=== PATIENT | female | born 1990 | race Caucasian/White ===

== ENCOUNTER 2019-03-25 13:48 | Observation (INO) | payer MEDICAID | END 2019-03-25 15:25 | disposition home or self-care (01) | DRG 566 | LOC: LDRP 13:48 | PROVIDERS: ADMIT Obstetrics & Gynecology; ATTEND Obstetrics & Gynecology | DX: O36.5930 Maternal care for other known or suspected poor fetal growth, third trimester, not applicable or unspecified (principal); Z3A.38 38 weeks gestation of pregnancy | CPT/HCPCS: 59025; 76818; 81002; G0378 ==

== ENCOUNTER 2019-03-26 20:18 | Observation (INO) | payer MEDICAID | END 2019-03-26 21:45 | disposition home or self-care (01) | DRG 566 | LOC: LDRP 20:18 | PROVIDERS: ADMIT Specialist; ATTEND Specialist | DX: O26.853 Spotting complicating pregnancy, third trimester (principal); Z3A.38 38 weeks gestation of pregnancy | CPT/HCPCS: 59025; 81002; G0378 ==

== ENCOUNTER 2019-03-30 14:08 | Observation (INO) | payer MEDICAID ==
[2019-03-30 14:59] LABS: Urine Bacteria FEW /hpf (None Seen); Urine Blood 2+ /uL (Negative); Urine Mucus FEW (None Seen); Urine Specific Gravity 1.013 (1.001-1.035); Urine WBC 8 /hpf (0 - 5)
== END 2019-03-30 15:24 | disposition home or self-care (01) | DRG 566 ==
LOC: LDRP 14:08
PROVIDERS: ADMIT Specialist; ATTEND Specialist
DX: O36.5931 Maternal care for other known or suspected poor fetal growth, third trimester, fetus 1 (principal); Z3A.38 38 weeks gestation of pregnancy
CPT/HCPCS: 59025; 76818; 81001; 81002; G0378

== ENCOUNTER 2019-04-03 09:40 | Inpatient (IN) | payer MEDICAID ==
[~2019-04-03] VITALS: Ht 30.5 cm; Wt 0.5 kg
[2019-04-03] MEDS ORDERED: LACT. RINGERS/OXYTOCIN 20UNITS 1,000 ML IV SCH (10:01)
[2019-04-03] MEDS ORDERED: FERR-7 PO (10:14)
[2019-04-03] MEDS ORDERED: PREN-96 PO (10:14)
[2019-04-03] MEDS ORDERED: NALBUPHINE HCL 10 MG/1ml INJECTION IV PRN (10:15)
[2019-04-03] MEDS ORDERED: PHISODERM TOP SOLN 240ML BTL TOP PRN (10:15)
[2019-04-03] MEDS ORDERED: LIDOCAINE 2%HCL (LOCAL ANESTH.) INJ 20ML MDV ID ONE (10:15)
[2019-04-03] MEDS ORDERED: DERMOPLAST 60ML BOTTLE TOP PRN (10:15)
[2019-04-03] MEDS ORDERED: WITCH HAZEL-GLYCERIN PAD TOP PRN (10:15)
[2019-04-03] MEDS ORDERED: PENICILLIN G POT 5MIL/D5 50ML 50 ML IV ONE (10:15)
[2019-04-03 10:28] LABS: Basophils # (auto) 0.1 uL; Basophils % (auto) 0.8 % (0.0-2.0); Eosinophils # (auto) 0 uL; Eosinophils % (auto) 0.4 % (0.0-7.0); Hematocrit 40.6 % (36.0-46.0); Hemoglobin 13.5 g/dL (12.2-16.2); Lymphocytes # (auto) 1.8 uL; Lymphocytes % (auto) 22.3 % (10.0-50.0); Mean Corpuscular Hemoglobin 30.8 pg (28.0-32.0); Mean Corpuscular Hgb Conc. 33.2 g/dL (32.0-36.0); Mean Corpuscular Volume 92.8 fL (80.0-100.0); Monocytes # (auto) 0.8 uL; Monocytes % (auto) 9.6 % (0.0-12.0); Neutrophils # (auto) 5.5 uL; Neutrophils % (auto) 66.9 % (37.0-80.0); Nucleated Red Blood Cells % 0.1 %; Platelet Count (auto) 246 10^3/uL (140-450); Red Blood Cells 4.38 10^6/uL (4.0-5.20); White Blood Cell 8.2 10^3/uL (4.4-10.8)
[2019-04-03 10:29] LABS: Red Cell Distribution Width 24.1 % (11.8-14.3)
[2019-04-03 10:31] LABS: Urine Bacteria NONE SEEN /hpf (None Seen); Urine Blood Negative /uL (Negative); Urine Mucus FEW (None Seen); Urine Specific Gravity 1.017 (1.001-1.035); Urine WBC 2 /hpf (0 - 5)
[2019-04-03 10:42] LABS: INR 0.91 (0.9-1.15); Partial Thromboplastin Time 26.3 sec (23.64-32.05)
[2019-04-03 10:51] LABS: Calcium 9.2 mg/dL (8.5-10.1); Potassium 4.1 mmol/L (3.5-5.1)
[2019-04-03 10:54] LABS: BUN/Creatinine Ratio 10.8; Bilirubin, Total 0.5 mg/dL (0.2-1.0); Total Protein 6.7 g/dL (6.4-8.2)
[2019-04-03] MEDS: LACTATED RINGER'S 1,000 ML IV SCH ×2 (12:00→16:19)
[2019-04-03] MEDS ORDERED: BUTORPHANOL TARTRATE 2 MG/1 ML VIAL IV ONE (15:30)
[2019-04-03] MEDS: PENICILLIN G POTASSIUM 2,500,000 UNITS in D5W 5% 50 ML IV SCH ×2 (15:49→20:49)
[2019-04-03] MEDS ORDERED: LACTATED RINGER'S 1,000 ML IV ONE (19:40)
[2019-04-03] MEDS ORDERED: NALOXONE HCL 0.4 MG/ML VIAL IV ONE ×2 (19:45→20:30)
[2019-04-03] MEDS ORDERED: ePHEDrine SULFATE 50 MG/ML AMP IV ONE ×2 (19:45→20:30)
[2019-04-03] MEDS ORDERED: fentaNYL 200mCg/100ml W ROPIVA 100 ML EPI SCH ×2 (19:45→20:30)
[2019-04-03] MEDS ORDERED: TERBUTALINE SULFATE 1 MG/ML 1ML VIAL SC ONE (21:54)
[2019-04-03] MEDS ORDERED: MORPHINE SULF(PF) 0.5MG/ML 10ML VIAL ONE (22:27)
[2019-04-03] MEDS ORDERED: ePHEDrine SULFATE 50 MG/ML AMP ONE (22:27)
[2019-04-03] MEDS ORDERED: PHENYLEPHRINE HCL 10 MG/ML VL ONE (22:27)
[2019-04-03] MEDS ORDERED: fentaNYL CITRATE 100 MCG/2 ML VL ONE (22:29)
[2019-04-03] MEDS ORDERED: fentaNYL CITRATE 0 ML ONE (22:29)
[2019-04-03 23:15] LABS: Alcohol, Urine < 3.0 mg/dL (0-5); Amphetamine Screen, Urine NEGATIVE (NEGATIVE); Barbiturate Scree,Urine NEGATIVE (NEGATIVE); Benzodiazephine Screen, Urine NEGATIVE (NEGATIVE); Cannabinoid Screen, Urine NEGATIVE (NEGATIVE); Cocaine Screen, Urine NEGATIVE (NEGATIVE); Opiate Scree,Urine NEGATIVE (NEGATIVE); Phencyclidine Screen, Urine NEGATIVE (NEGATIVE)
[2019-04-03] MEDS ORDERED: MIDAZOLAM HCL 1MG/1ML-2 ML VIAL ONE (23:19)
[2019-04-03] MEDS ORDERED: SODIUM CHLORIDE LOCK 10 ML ONE (23:35)
[2019-04-03] MEDS ORDERED: HYDROmorphone HCL 2 MG/ML VL IV PRN (23:45)
[2019-04-03] MEDS ORDERED: KETOROLAC TROMETH 15 mg/ml 1ML VL IV PRN (23:45)
[2019-04-03] MEDS ORDERED: diphenhdrAMINE HCL 50 MG/1 ML VL IV PRN (23:45)
[2019-04-03] MEDS ORDERED: ONDANSETRON HCL 4 MG/2 ML VIAL IV PRN ×2 (23:45)
[2019-04-03] MEDS ORDERED: NALOXONE HCL 0.4 MG/ML VIAL IV PRN ×2 (23:45)
[2019-04-03] MEDS ORDERED: LACTATED RINGER'S 1,000 ML IV SCH (23:58)
[2019-04-04] VITALS (17 sets, daily range): BP systolic 87–101; BP diastolic 53–72
[2019-04-04] MEDS ORDERED: ceFAZolin 1GM/50ML 50 ML IV SCH
[2019-04-04] MEDS ORDERED: ACETAMINOPHEN IV 1000 MG/100ML (10MG/ML) IV PRN
[2019-04-04] MEDS ORDERED: TERBUTALINE SULFATE 1 MG/ML 1ML VIAL SC ONE
[2019-04-04] MEDS ORDERED: HYDROmorphone HCL 2 MG/ML VL IV PRN
[2019-04-04] MEDS ORDERED: ONDANSETRON HCL 4 MG/2 ML VIAL IV PRN
[2019-04-04 00:55] LABS: Basophils # (auto) 0.1 uL; Basophils % (auto) 0.5 % (0.0-2.0); Eosinophils # (auto) 0 uL; Hematocrit 31.1 % (36.0-46.0); Hemoglobin 10.2 g/dL (12.2-16.2); Lymphocytes # (auto) 1.4 uL; Lymphocytes % (auto) 9.5 % (10.0-50.0); Mean Corpuscular Hgb Conc. 32.8 g/dL (32.0-36.0); Mean Corpuscular Volume 94.5 fL (80.0-100.0); Monocytes # (auto) 0.9 uL; Monocytes % (auto) 6.3 % (0.0-12.0); Neutrophils # (auto) 12.2 uL; Neutrophils % (auto) 83.7 % (37.0-80.0); Platelet Count (auto) 216 10^3/uL (140-450); Red Blood Cells 3.29 10^6/uL (4.0-5.20); White Blood Cell 14.6 10^3/uL (4.4-10.8)
[2019-04-04 01:01] LABS: Red Cell Distribution Width 23.8 % (11.8-14.3)
--- NOTE | 2019-04-04 01:17 | NUR ---
Bottle-feeding Education: Patient encouraged to breastfeed. Benefits of and the risk of providing formula to was discussed. Patient verbalized understanding of the benefits and is aware of risk and insists on bottle-feeding. Formula provided and instruction on formula preperation from the New Beginning booklet reviewed with patient.
--- NOTE | 2019-04-04 01:17 | NUR ---
Teaching: Reviewed information in New Beginnings booklet with patient. Discussed benefits of and risks associated with not . Discussed different positions, proper latch, feeding cues, and baby-led . Provided information of medication side effects related to . All questions and concerns addressed at this time. Patient verbalized understanding of information.
--- NOTE | 2019-04-04 01:17 | NUR ---
Post Op for LDRP: Received patient from PACU via bed to room 8B. Patient A/A/Ox4, IV fluids placed on pump and infusing per order, incisional site dressing clean/dry/intact and Rivera Catheter to gravity draining clear yellow urine. Incentive Spirometer at bedside and instruction on proper use with return demonstration done by patient.
[2019-04-04] MEDS: LACTATED RINGER'S 1,000 ML IV SCH (02:46)
[2019-04-04 05:37] LABS: Basophils # (auto) 0 uL; Basophils % (auto) 0.4 % (0.0-2.0); Eosinophils # (auto) 0 uL; Eosinophils % (auto) 0.1 % (0.0-7.0); Hematocrit 28.4 % (36.0-46.0); Hemoglobin 9.6 g/dL (12.2-16.2); Lymphocytes # (auto) 1.6 uL; Lymphocytes % (auto) 17.4 % (10.0-50.0); Mean Corpuscular Hemoglobin 31.7 pg (28.0-32.0); Mean Corpuscular Volume 93.2 fL (80.0-100.0); Monocytes # (auto) 0.7 uL; Monocytes % (auto) 7.4 % (0.0-12.0); Neutrophils # (auto) 6.7 uL; Neutrophils % (auto) 74.7 % (37.0-80.0); Platelet Count (auto) 167 10^3/uL (140-450); Red Blood Cells 3.05 10^6/uL (4.0-5.20)
[2019-04-04 06:16] LABS: Red Cell Distribution Width 22.9 % (11.8-14.3)
--- NOTE | 2019-04-04 06:38 | NUR ---
PT DID NOT HAVE AN ABDOMINAL BINDER IN PLACE UPON INITIAL ASSESSMENT, ABDOMINAL BINDER PLACED AND PT EDUCATED ON THE IMPORTANCE. PT HAS SCD'S COMPRESSING BILATERAL LOWER EXTREMITIES. PTS GIVEN HER INCENTIVE SPIROMETER, PT EDUCATED ON THE USE OF USING 10 TIMES EVERY HOUR. PT SHOWED PROPER USE AND PT RETURNED DEMONSTRATION. PT IV SITE IS CLEAN, DRY, AND INTACT, 0.9% NS RUNNING AT 125ML/HR PER ORDER. PTS ARGUETA CATHETER IS PATENT AND DRAINING YELLOW URINE TO GRAVITY. NO KINKS OR BLADDER DISTENTION NOTED. BED IS LOCKED AND ION LOWEST POSITION, 2 SIDE RAILS UP, PTS CALL LIGHT IS WITHIN REACH. WILL CONTINUE TO MONITOR.
[2019-04-04 07:06] LABS: RPR Non Reactive (Non Reactive)
--- NOTE | 2019-04-04 07:25 | NUR ---
DR. BEE AT [facility], STATUS UPDATE GIVEN, TRENDING VITAL SIGNS GIVEN, PT HAS ACTIVE BOWEL SOUNDS, NO FLATUS YET, PTS PAIN IS NOT CONTROLLED BY THE ONCE OFRIMEV IV, PT DECLINING DILAUDID IV MEDICATION. ORDERS RECEIVED FROM DR. BEE FOR OFRIMEV IV ONCE, CONTINUE 0.95NS AT 125ML/HR AND POST OP DAY 1 ORDERS TO BE PLACED ONCE PT HAS PASSED FLATUS, ADVANCE DIET TOLERATED AND SALINE LOCK PTS IV. READ BACK AND VERIFIED ORDERS. WILL CARRY OUT. Addendum: 04/04/19 at 1001 by Rosanna Sanches RN DR. BEE ALSO REVIEWED ALL LABS, HGB: 9.6, HCT: 28.4, PLT: 167.
[2019-04-04] MEDS ORDERED: ACETAMINOPHEN IV 1000 MG/100ML (10MG/ML) IV ONE (08:45)
[2019-04-04] MEDS: SODIUM CHLORIDE 0.9% 1,000 ML IV SCH ×2 (09:02→16:49)
--- NOTE | 2019-04-04 10:28 | NUR ---
PT STATES SHE HAS PASSED FLATUS, ADVANCING DIET PER DR. BEE ORDER.
[2019-04-04] MEDS ORDERED: HYDROcodone-ACET 5/325MG TAB PO PRN (10:45)
--- NOTE | 2019-04-04 11:50 | NUR ---
Arshad catheter dc'd Order to discontinue arshad catheter. Arshad dc'd with clean technique following deflation of balloon, 200ml clear yellow urine in arshad bag upon removal. Patient tolerated well with no complaints of pain. Continue care.
--- NOTE | 2019-04-04 11:55 | NUR ---
Ambulation: Patient OOB with standby assistance by RN. Patient ambulated to bathroom with steady gait. Patient unable to void at this time. Pericare teaching provided with returned demonstration by patient. Clean gown provided and bed linen changed. Patient ambulated to bedside chair to bed with steady gait and no distress noted. Will continue to monitor.
[2019-04-04] MEDS: HYDROcodone-ACET 5/325MG TAB PO PRN ×3 (12:00→22:56)
--- NOTE | 2019-04-04 13:50 | NUR ---
VOID #1 PT AMBULATED TO BATHROOM VIA STEADY GATT. PT ABLE TO VOID 250ML PINK TINGED URINE WITHOUT DIFFICULTY. PT AMBULATED BACK TO BED VIA STEADY GAIT, NO DISTRESS NOTED. WILL CONTINUE TO MONITOR. Addendum: 04/04/19 at 1531 by Rosanna Sanches RN GAIT
[2019-04-04] MEDS: ceFAZolin 1GM/50ML 50 ML IV SCH ×2 (15:19→23:59)
--- NOTE | 2019-04-04 18:00 | NUR ---
Received report, assumed care.
--- NOTE | 2019-04-04 18:15 | NUR ---
Reviewed plan of care, Discussed goals, safety and pain scale. Pt verbalized understanding. All questions answered. Reinforcement provided regarding feeding schedule for . Schedule feeding written out on feeding log, and all bottles labeled with times and amount to feed. Pt verbalized understanding. Pt requested ibuprophen . Pt stated also she would ambulate in a little while. Significant other not at bedside.
--- NOTE | 2019-04-04 18:15 | NUR ---
Per Dayshift RN pt voided x's 2. Pt clarified as well, voided twice.
--- NOTE | 2019-04-04 18:36 | NUR ---
Bedside chair demonstrated as a bed for FOB, linen provided.
--- NOTE | 2019-04-04 19:15 | NUR ---
In-depth review of how to feed infant and position . Pt verbalized understanding. Pt questioned this RN regarding the glucose monitoring. In-depth reinforcement provided. Pt verbalized understanding.
[2019-04-04] MEDS: IBUPROFEN 800 MG TAB PO PRN (19:54)
[2019-04-04] MEDS: DOCUSATE SOD 100 MG CAP PO SCH (19:55)
--- NOTE | 2019-04-04 20:30 | NUR ---
Education provided and procedure explained for glucose check. Pt asked "has it been 24 hours yet? Can we stop poking the baby now?" This RN explained and reinforced the plan of care for . Reviewed feeding log with appropriate times to feed baby and reviewed when the 24 hours would be completed. According to her delivery time, [id number] 03, baby will be complete with blood sugars, if they continue to be within the limits of normal, on Apr 04 at 6, 24 hours of age. Pt verbalized understanding.
--- NOTE | 2019-04-05 00:30 | NUR ---
Car seat challenge for reviewed. Pt verbalized understanding. FOB in patients shower. escorted to nursery for car seat test.
--- NOTE | 2019-04-05 01:30 | NUR ---
Endorsed care to BENITEZ Waters Relinquished care in stable condition
--- NOTE | 2019-04-05 01:30 | NUR ---
Received report from BENITEZ Moore and assumed care of female pt.
[2019-04-05] MEDS: HYDROcodone-ACET 5/325MG TAB PO PRN ×4 (02:54→19:11)
[2019-04-05 03:00] VITALS: BP 107/53
--- NOTE | 2019-04-05 06:10 | NUR ---
Report received from Sancho Farnsworth RN on stable pt. Assumed care Addendum: 04/05/19 at 0621 by Jacquelyn Jett RN Amended: Links added.
[2019-04-05 06:33] VITALS: BP 107/65
--- NOTE | 2019-04-05 06:33 | NUR ---
Lower abdominal incision open to air, well approximated with 13 melissa intact. No redness, drainage, or bleeding noted. Abdominal binder in place. Incentive spirometer at bedside. Pt educated on use and the importance of ambulation and the use of the IS. Pt verbalizes understanding. Addendum: 04/05/19 at 0816 by Jacquelyn Jett RN Amended: Links added.
[2019-04-05] MEDS: IBUPROFEN 800 MG TAB PO PRN ×2 (06:53→15:39)
[2019-04-05] MEDS: DOCUSATE SOD 100 MG CAP PO SCH ×2 (09:31→22:06)
[2019-04-05 11:30] VITALS: BP 98/60
[2019-04-05 15:30] VITALS: BP 101/59
[2019-04-05] MEDS ORDERED: BISACODYL 10 MG RECT SUPP PR PRN (15:30)
--- NOTE | 2019-04-05 16:33 | NUR ---
Pt states that she had a bowel movement; This RN unable to visualize BM due to a large amount of toilet paper in the toilet. Skid marina noted on bottom of toilet after flushing.
--- NOTE | 2019-04-05 18:08 | NUR ---
Report given to Salazar Vergara RN on stable pt. Relinquished care. Addendum: 04/05/19 at 1823 by Jacquelyn Jett RN Amended: Links added.
--- NOTE | 2019-04-05 18:30 | NUR ---
Opening Shift Note Assumed care of patient, awake and alert x4. No S/S of distress/SOB on room air. Reports ABD incision and back pain 9, patient sitting up in bed eating chips and talking in normal tone with no facial grimacing. Will check eMAR for pain medication orders. FOB and visitor at bedside. Informed of hospital visiting hours, verbalized understanding. Bed locked in lowest position. Assessment completed on mother and Baby Boy Gammage, see interventions. Cord clam removed on baby. Instructed on POC and to call for assist PRN, will continue to monitor for changes Q1hr and PRN.
[2019-04-05 19:00] VITALS: BP 100/74
--- NOTE | 2019-04-05 19:23 | NUR ---
IV removal IV DC'd with clean sterile technique, catheter fully intact. Pressure dressing applied to site. Patient tolerated well.
[2019-04-05 22:42] VITALS: BP 104/55
[2019-04-06] MEDS: IBUPROFEN 800 MG TAB PO PRN ×2 (00:29→10:45)
[2019-04-06] MEDS: HYDROcodone-ACET 5/325MG TAB PO PRN ×2 (02:28→06:49)
[2019-04-06 03:00] VITALS: BP 98/54
[2019-04-06 07:10] VITALS: BP 113/69
--- NOTE | 2019-04-06 08:00 | NUR ---
Dr. Velazquez at bedside morning rounds
--- NOTE | 2019-04-06 08:15 | NUR ---
C/S Staple Removal DC Note: Orders received to remove melissa. Melissa removed using sterile technique. Lower abdominal incision approximated, no drainage/redness/inflammation visualized at time of removal. Steri-strips applied. Education provided on incisional care. Patient verbalized understanding and willingness to comply to instructions/teaching provided.
[2019-04-06] MEDS: DOCUSATE SOD 100 MG CAP PO SCH (10:10)
--- NOTE | 2019-04-06 10:38 | NUR ---
Discharge: Discharge instructions given as ordered. Pt encouraged to follow up with [facility] [employer] as instructed. Prescription given to patient . All questions and concerns addressed. Patient verbalized understanding. Medication reconciliation completed and copy given to patient. Patient encouraged to prepare to depart unit, Patient stated her brother will be taking her home.
[2019-04-06 10:51] VITALS: BP 98/62
--- NOTE | 2019-04-06 12:05 | NUR ---
Report given to Virginia Hooker RN on stable pt. Relinquished care.
--- NOTE | 2019-04-06 12:59 | NUR ---
Discharge: Patient taken to vehicle with all personal belongings, accompanied by staff and family member. No distress noted at time of departure, no adverse changes in status since initial assessment.
== END 2019-04-06 13:00 | disposition home or self-care (01) | DRG 540 ==
LOC: LDRP 09:40
PROVIDERS: ADMIT Specialist; ATTEND Specialist
PROC: 3E0R3BZ Introduction of Anesthetic Agent into Spinal Canal, Percutaneous Approach (ICD-10-PCS; 2019-04-03)
PROC: 00HU33Z Insertion of Infusion Device into Spinal Canal, Percutaneous Approach (ICD-10-PCS; 2019-04-03)
PROC: 10D00Z1 Extraction of Products of Conception, Low, Open Approach (ICD-10-PCS; principal; 2019-04-03 11:01)
PROC: 30233N1 Transfusion of Nonautologous Red Blood Cells into Peripheral Vein, Percutaneous Approach (ICD-10-PCS; 2019-04-04)
DX: O36.5930 Maternal care for other known or suspected poor fetal growth, third trimester, not applicable or unspecified (principal); O41.03X0 Oligohydramnios, third trimester, not applicable or unspecified; O69.81X0 Labor and delivery complicated by cord around neck, without compression, not applicable or unspecified; Z37.0 Single live birth; O99.824 Streptococcus B carrier state complicating childbirth; Z3A.39 39 weeks gestation of pregnancy; O76 Abnormality in fetal heart rate and rhythm complicating labor and delivery
CPT/HCPCS: 36415; 51702; 59025; 62282; 80053; 80307; 81001; 84112; 85025; 85610; 85730; 86592; 86850; 86900; 86901; 86920; 94760; 94762; 96361; 96375; G0378; J0131; J0690; J2250; J2540; J7060

== ENCOUNTER → 2022-05-24 | Outpatient (CLI) | payer MEDICAID ==
[~2022-05-24] MED LIST: FERR-7 PO; PREN-96 PO
[2022-05-24 16:23] LABS: Basophils # (auto) 0 10 ^3/uL (0-0.2); Eosinophils # (auto) 0 10 ^3/uL (0-0.8); Eosinophils % (auto) 0.6 % (0.0-7.0); Hematocrit 35.2 % (36.0-46.0); Hemoglobin 11.5 g/dL (12.2-16.2); Lymphocytes # (auto) 1.9 10 ^3/uL (0.4-5.4); Mean Corpuscular Hemoglobin 28.7 pg (28.0-32.0); Mean Corpuscular Hgb Conc. 32.8 g/dL (32.0-36.0); Mean Corpuscular Volume 87.5 fL (80.0-100.0); Monocytes # (auto) 0.4 10 ^3/uL (0-1.3); Monocytes % (auto) 8.2 % (0.0-12.0); Neutrophils # (auto) 2.1 10 ^3/uL (1.6-8.6); Neutrophils % (auto) 48.2 % (37.0-80.0); Nucleated Red Blood Cells % 0.1 %; Red Blood Cells 4.02 10^6/uL (4.0-5.20); Red Cell Distribution Width 16.2 % (11.8-14.3); White Blood Cell 4.4 10^3/uL (4.4-10.8)
[2022-05-24 16:26] LABS: Albumin 3.7 g/dL (3.4-5.0); Calcium 8.7 mg/dL (8.5-10.1)
[2022-05-24 16:30] LABS: Bilirubin, Total 0.4 mg/dL (0.2-1.0); Total Protein 6.7 g/dL (6.4-8.2)
== END | disposition home or self-care (01) ==
LOC: LAB 16:00
PROVIDERS: ATTEND Nurse Practitioner Family
DX: Z00.00 Encounter for general adult medical examination without abnormal findings (principal); F17.200 Nicotine dependence, unspecified, uncomplicated
CPT/HCPCS: 36415; 80053; 85025